=== PATIENT | female | born 1990 | race Caucasian/White ===

== ENCOUNTER 2017-02-19 20:42 | Emergency (ER) | payer OTHER ==
[2017-02-19 21:15] LABS: BASOPHIL % 0.4 % (0-2); PLATELET COUNT 223 x10^3mcL (130-400); RED CELL DISTRIBUTION WIDTH 13.5 % (11.5-14.5)
[2017-02-19 21:15] LABS: microscopic required? YES; urine erythrocyte NEGATIVE (NEGATIVE)
[2017-02-19 21:25] LABS: CALCIUM 8.7 mg/dL (8.5-10.1); CARBON DIOXIDE 28.9 mmol/L (21-32); CHLORIDE SERUM 106 mmol/L (98-107); CREATININE SERUM 0.7 mg/dL (0.6-1.0); GFR1 > 60 mL/min; GLUCOSE SERUM 92 mg/dL (74-106); POTASSIUM SERUM 4.2 mmol/L (3.5-5.1); SODIUM SERUM 139 mmol/L (136-145)
[2017-02-19 21:29] LABS: ALBUMIN 3.8 g/dL (3.4-5.0); ALKALINE PHOSPHATASE 106 U/L (46-116); ALT/SGPT 37 U/L (14-59); AMYLASE 28 U/L (25-115); AST/SGOT 25 U/L (15-37); BILIRUBIN TOTAL 0.37 mg/dL (0.20-1.00); LIPASE 107 IU/L (73-393); TOTAL PROTEIN, SERUM 6.8 g/dL (6.4-8.2)
[2017-02-19 22:34] VITALS: BP 100/66
== END 2017-02-19 22:34 | disposition home or self-care (01) ==
LOC: ED 20:42
PROVIDERS: Emergency Medicine
DX: N39.0 Urinary tract infection, site not specified (principal); Z88.6 Allergy status to analgesic agent
CPT/HCPCS: J1170; Q0162

== ENCOUNTER 2017-04-01 16:37 | Emergency (ER) | payer OTHER ==
[~2017-04-01] VITALS: Ht 154.9 cm; Wt 52.2 kg
[2017-04-01 19:45] VITALS: BP 105/71
== END 2017-04-01 19:45 | disposition home or self-care (01) ==
LOC: ED 16:37
DX: N83.201 Unspecified ovarian cyst, right side (principal)
CPT/HCPCS: J1170; Q0162

== ENCOUNTER 2017-04-15 19:01 | Emergency (ER) | payer OTHER ==
[2017-04-15 20:27] LABS: BASOPHIL % 0.2 % (0-2); PLATELET COUNT 223 x10^3mcL (130-400); RED CELL DISTRIBUTION WIDTH 13.8 % (11.5-14.5)
[2017-04-15 20:41] LABS: CALCIUM 9.4 mg/dL (8.5-10.1); CHLORIDE SERUM 105 mmol/L (98-107); CREATININE SERUM 0.6 mg/dL (0.6-1.0); GFR1 > 60 mL/min; GLUCOSE SERUM 95 mg/dL (74-106); POTASSIUM SERUM 3.9 mmol/L (3.5-5.1); SODIUM SERUM 142 mmol/L (136-145)
[2017-04-15 20:51] LABS: ALBUMIN 4.2 g/dL (3.4-5.0); ALKALINE PHOSPHATASE 119 U/L (46-116); ALT/SGPT 107 U/L (14-59); AMYLASE 26 U/L (25-115); AST/SGOT 71 U/L (15-37); BILIRUBIN TOTAL 0.29 mg/dL (0.20-1.00); LIPASE 90 IU/L (73-393); TOTAL PROTEIN, SERUM 7.9 g/dL (6.4-8.2)
[2017-04-15 23:05] VITALS: BP 104/63
== END 2017-04-16 02:05 | disposition home or self-care (01) ==
LOC: ED 19:01
PROVIDERS: Specialist
DX: D27.0 Benign neoplasm of right ovary (principal)
CPT/HCPCS: 83880; J2405; J3010; J7030; Q9967

== ENCOUNTER 2017-05-14 22:21 | Emergency (ER) | payer OTHER ==
[2017-05-15 00:02] VITALS: BP 120/70
== END 2017-05-15 00:02 | disposition home or self-care (01) ==
LOC: ED 22:21
DX: N83.201 Unspecified ovarian cyst, right side (principal)
CPT/HCPCS: J3010

== ENCOUNTER 2018-02-24 09:18 | Emergency (ER) | payer MEDICAID ==
[~2018-02-24] VITALS: Ht 154.9 cm; Wt 52.2 kg
[2018-02-24 09:23] VITALS: Ht 154.9 cm; Wt 52.2 kg
[2018-02-24 10:30] LABS: microscopic required? NO
[2018-02-24 10:45] LABS: urine erythrocyte NEGATIVE (NEGATIVE)
[2018-02-24 10:58] LABS: BASOPHIL % 0.3 % (0-2); PLATELET COUNT 221 x10^3mcL (130-400); RED CELL DISTRIBUTION WIDTH 13.6 % (11.5-14.5)
[2018-02-24 11:09] LABS: CALCIUM 9.1 mg/dL (8.5-10.1); CARBON DIOXIDE 24.8 mmol/L (21-32); CHLORIDE SERUM 108 mmol/L (98-107); CREATININE SERUM 0.6 mg/dL (0.6-1.0); GFR1 > 60 mL/min; GLUCOSE SERUM 104 mg/dL (74-106); SODIUM SERUM 143 mmol/L (136-145)
[2018-02-24 11:12] VITALS: BP 109/86
[2018-02-24 11:14] LABS: ALBUMIN 3.7 g/dL (3.4-5.0); ALKALINE PHOSPHATASE 114 U/L (46-116); ALT/SGPT 74 U/L (14-59); AMYLASE 26 U/L (25-115); AST/SGOT 48 U/L (15-37); BILIRUBIN TOTAL 0.36 mg/dL (0.20-1.00); LIPASE 83 IU/L (73-393); TOTAL PROTEIN, SERUM 7.2 g/dL (6.4-8.2)
== END 2018-02-24 11:11 | disposition left against medical advice (07) ==
LOC: ED 09:18
PROVIDERS: Emergency Medicine
DX: R10.30 Lower abdominal pain, unspecified (principal); R11.0 Nausea; Z88.6 Allergy status to analgesic agent; Z87.42 Personal history of other diseases of the female genital tract
CPT/HCPCS: J1885; J7030